=== PATIENT | female | born 1985 | race Caucasian/White ===

== ENCOUNTER 2017-03-12 11:08 | Emergency (ER) | payer OTHER ==
[~2017-03-12] VITALS: Ht 162.6 cm; Wt 72.6 kg
--- NOTE | ~2017-03-12 | EKG ---
[place] [address] [facility] [place] [address] ELECTROCARDIOGRAM REPORT Name: SIMON SAINI Room #: [facility] M.R.#: [id number] Admission: Attend Phys: Discharge: Date of : 83 Report #: [id number] THIS REPORT FOR: //name// [facility] ED Test Date: 2017-03-12 Test Time: 11:08:08 Pat Name: SIMON SAINI Department: Room: Gender: F [employer] Operator: TI : 1985 Requested By: Artemio Leiva Order Number: [id number] MD: Measurements Intervals Kimberly Rate: 109 P: 62 RI: 180 QRS: 45 QRSD: 93 T: -11 QT: 339 QTc: 457 Interpretive Statements Sinus tachycardia Probable left atrial enlargement Borderline repolarization abnormality Baseline wander in lead(s) V5 No previous ECG available for comparison [email or web address] By: 07 07 Aly Lu MD /EPI
[~2017-03-12 11:08] MED LIST: FIORICET OR; NOHOMEMEDICATIONS
[2017-03-12] MEDS ORDERED: LIPITOR10 MG PO (11:47)
[2017-03-12] MEDS ORDERED: COZAAR 25 MG TA25 M1 PO (11:47)
[2017-03-12] MEDS ORDERED: YOSPRALA DR 811 EACH PO (11:49)
[2017-03-12] MEDS ORDERED: MICROGESTIN1 EAC1 PO (11:49)
[2017-03-12 12:02] LABS: ABSOLUTE NEUTROPHILS 6.2 thou/uL (1.4-8.2); BASOPHILS 0.6 % (0.0-2.0); EOSINOPHILS 1.5 % (0.0-3.0); HEMATOCRIT 39.6 % (37.0-47.0); HEMOGLOBIN 13.7 gm/dL (12.0-15.0); LYMPHOCYTES 26.3 % (24.0-44.0); MCH 30.8 pg (26.0-34.0); MCHC 34.5 g/dL (28.0-37.0); MCV 89.3 fL (80.0-100.0); MONOCYTES 6.2 % (1.0-8.0); PLATELET COUNT 282 thou/uL (150-400); POLYS 65.4 % (36.0-66.0); RBC 4.43 mil/uL (4.20-5.00); RDW 12.5 % (10.5-14.5); WBC 9.4 thou/uL (4.0-11.0)
[2017-03-12 12:03] LABS: MANUAL DIFF NO
[2017-03-12 12:10] LABS: ANION GAP 10 mmol/L (7-16); BUN 7 mg/dL (7-18); CALCIUM 8.7 mg/dL (8.5-10.1); CHLORIDE 104 mmol/L (98-107); CO2 23 mmol/L (21-32); CREATININE 0.7 mg/dL (0.6-1.0); GLUCOSE 81 mg/dL (74-106); POTASSIUM 3.5 mmol/L (3.5-5.1); SODIUM 137 mmol/L (136-145)
[2017-03-12 12:24] LABS: NT-PRO BRAIN NAT PEPTIDE 78 pg/mL (<300); TROPONIN-I < 0.04 ng/mL (<0.04-0.07)
[2017-03-12 12:51] LABS: URINE BILIRUBIN NEGATIVE (Negative); URINE BLOOD NEGATIVE (Negative); URINE COLOR YELLOW; URINE GLUCOSE-RANDOM* NEGATIVE (Negative); URINE KETONES NEGATIVE (Negative); URINE NITRITE NEGATIVE (Negative); URINE PROTEIN (DIPSTICK) NEGATIVE (Negative); URINE UROBILINOGEN 0.2 E.U./dl (0.2-1.0)
[2017-03-12 12:59] LABS: AMP/METHAMP Negative (Negative); BARBITURATES Negative (Negative); BENZODIAZEPINES Negative (Negative); COCAINE Negative (Negative); METHADONE Negative (Negative); OPIATES Negative (Negative); PCP Negative (Negative); THC Negative (Negative)
[2017-03-12 15:42] VITALS: BP 140/88
== END 2017-03-12 15:43 | disposition home or self-care (01) ==
LOC: ER 11:08
PROVIDERS: Nurse Practitioner
DX: R07.89 Other chest pain (principal); E78.00 Pure hypercholesterolemia, unspecified; I10 Essential (primary) hypertension; F17.210 Nicotine dependence, cigarettes, uncomplicated